=== PATIENT | female | born 1965 | race Caucasian/White ===

== ENCOUNTER → 2017-01-20 | Outpatient (CLI) | payer MEDICAID ==
--- NOTE | 2017-01-20 21:51 | US ---
EXAMINATION TYPE: US thyroid st tissue head/neck DATE OF EXAM: 01/20/2017 COMPARISON: NONE CLINICAL HISTORY: 51-year-old female E01.0 Thyromegaly; On thyroid medication Technique: Multiple sonographic images of the thyroid gland are obtained. FINDINGS: Right Lobe: 4.7 x 1.8 x 1.8 cm Overall Parenchyma: heterogenous Left Lobe: 4.2 x 2.3 x 1.4 cm Overall Parenchyma: heterogeneous Isthmus Thickness: 0.3 cm NODULES RIGHT: # of nodules measured on right: 2 largest of multiple 1. 1.0 X 0.9 x 0.8 cm solid isoechoic nodule at the lower lateral pole with well-defined margins; w ith a rim of peripheral calcification. This nodule is wider than tall and shows intranodular vascula rity. 2. 0.6 X 0.5 x 0.4 cm isoechoic solid nodule at the lower medial pole with well-defined margins; wit h rim of peripheral calcification. This nodule is wider than tall and shows no intranodular vascular ity. There are 2 additional solid hypoechoic circumscribed nodules present in the mid to lower pole measur ing up to 5 mm. LEFT: # of nodules measured on left: 2 of multiple 1. 0.8x 0.6x 0.6m hypoechoic solid nodule at the lower pole with well-defined margins. This nodule i s wide as is tall and shows no intranodular vascularity. 2. 0.5 x 0.6x 0.4cm isoechoic, solid nodule at the lower medial pole,with well-defined margins. This nodule is wider than tall and shows no intranodular vascularity. Additional scattered subcentimeter nodules are present measuring less than 5 mm. ISTHMUS: # of nodules measured in the isthmus: 0 Bilateral neck scanned, no evidence of lymphadenopathy. IMPRESSION: Heterogeneous gland with a number of thyroid nodules on both sides, largest measuring 1 cm on the rig ht and 8 mm on the left. Findings suggest multinodular goiter.
== END | disposition home or self-care (01) ==
LOC: RADUSWWP 15:30
PROVIDERS: ATTEND Internal Medicine
DX: E04.2 Nontoxic multinodular goiter (principal)
CPT/HCPCS: 76536

== ENCOUNTER → 2017-03-03 | Outpatient (CLI) | payer MEDICAID ==
--- NOTE | 2017-03-04 08:28 | MM ---
Reason for exam: screening (asymptomatic). Last mammogram was performed 1 year and 6 months ago. Physical Findings: A clinical breast exam by your physician is recommended on an annual basis and results should be correlated with mammographic findings. MG 3D Screening Mammo W/Cad Bilateral CC and MLO view(s) were taken. Prior study comparison: August 22, 2015, bilateral MG 3d screening mammo w/cad. August 12, 2014, bilateral MG screening mammo w CAD. The breast tissue is heterogeneously dense. This may lower the sensitivity of mammography. There is no discrete abnormality. No significant changes when compared with prior studies. ASSESSMENT: Negative, BI-RAD 1 RECOMMENDATION: Routine screening mammogram of both breasts in 1 year.
== END | disposition home or self-care (01) ==
LOC: RADMAMWWP 07:18
PROVIDERS: ATTEND Internal Medicine
DX: Z12.31 Encounter for screening mammogram for malignant neoplasm of breast (principal)
CPT/HCPCS: 77063; G0202

== ENCOUNTER → 2017-12-22 | Outpatient (CLI) | payer MEDICAID ==
--- NOTE | 2017-12-22 13:30 | US ---
EXAMINATION TYPE: US thyroid st tissue head/neck DATE OF EXAM: 12/22/2017 COMPARISON: 01/20/2017 CLINICAL HISTORY: E04.2 MULTINODULAR GOITER. GLAND SIZE: Right Lobe: 3.8 x 2.1 x 1.6 cm Overall Parenchyma: heterogenous Left Lobe: 3.7 x 1.6 x 1.2 cm Overall Parenchyma: heterogeneous Isthmus Thickness: 0.3 cm NODULES RIGHT: # of nodules measured on right: 3 largest of multiple 1. 0.9 X 1.0 x 0.8 cm isoechoic solid nodule at the lower lateral pole with well-defined margins; w ith hyperechoic periphery. This nodule is wider than tall and shows intranodular vascularity. Prior size: 1.0 x 0.9 x 0.8 cm 2. 0.5 X 0.4 x 0.4 cm isoechoic solid nodule at the medial pole with well-defined margins; with hype rechoic periphery. This nodule is wide as is tall and shows no intranodular vascularity. Prior size: 0.6 x 0.5 x 0.4 cm 3. 0.6 X 0.6 x 0.3 cm isoechoic solid nodule at the medial mid pole with well-defined margins. This nodule is wider than tall and shows no intranodular vascularity. LEFT: # of nodules measured on left: 4 largest of multiple 1. 0.8 X 0.9 x 0.6 cm hypoechoic solid nodule at the lower pole with well-defined margins. This no dule is wider than tall and shows no intranodular vascularity. Prior size: 0.8 x 0.6 x 0.6 cm 2. 0.5 X 0.7 x 0.5 cm isoechoic solid nodule at the lower pole with well-defined margins. This nodu le is wider than tall and shows no intranodular vascularity. Prior size: 0.5 x 0.6 x 0.4 cm 3. 0.97 X 0.8 x 0.4 cm isoechoic solid nodule at the mid pole with well-defined margins. This nodul e is wider than tall and shows no intranodular vascularity. Prior size: not measured/ not well seen 4. 0.7 X 0.7 x 0.5 cm hypoechoic solid nodule at the upper pole with well-defined margins. This nod ule is wider than tall and shows no intranodular vascularity. Prior size: not measured/ not well seen ISTHMUS: # of nodules measured in the isthmus: 1 1. 0.6 X 0.5 x 0.3 cm hypoechoic solid nodule at the lower right pole with well-defined margins. T his nodule is wider than tall and shows no intranodular vascularity. Prior size: not seen Bilateral neck scanned: no evidence of lymphadenopathy. IMPRESSION: Multiple bilateral subcentimeter thyroid nodules, most of which were seen on the prior exam and overa ll stable and few others not well visualized on the prior. Overall findings are compatible with a mul tinodular goiter. Continued surveillance could be performed.
== END | disposition home or self-care (01) ==
LOC: RADUSWWP 12:09
PROVIDERS: ATTEND Internal Medicine Endocrinology, Diabetes & Metabolism
DX: E04.2 Nontoxic multinodular goiter (principal)
CPT/HCPCS: 76536

== ENCOUNTER → 2018-01-21 | Outpatient (CLI) | payer MEDICAID ==
--- NOTE | 2018-01-21 19:41 | XR ---
EXAMINATION TYPE: XR lumbosacral spine min 4V DATE OF EXAM: 01/21/2018 COMPARISON: NONE HISTORY: Left hip pain and back pain TECHNIQUE: 5 views FINDINGS: Lumbar vertebra have normal spacing and alignment. Posterior elements are intact. Sacroilia c joints appear normal. IMPRESSION: Normal lumbar spine exam. There is probably a calculus in the lower pole left kidney.
== END | disposition home or self-care (01) ==
LOC: RADXRYALE 16:22
PROVIDERS: ATTEND Internal Medicine
DX: M54.5 Low back pain (principal)
CPT/HCPCS: 72110

== ENCOUNTER → 2018-03-27 | Outpatient (CLI) | payer MEDICAID ==
--- NOTE | 2018-04-03 09:10 | MM ---
Reason for exam: screening (asymptomatic). Last mammogram was performed 1 year and 1 month ago. MG 3D Screening Mammo W/Cad Bilateral CC and MLO view(s) were taken. Prior study comparison: March 03, 2017, bilateral MG 3d screening mammo w/cad. August 22, 2015, bilateral MG 3d screening mammo w/cad. The breast tissue is heterogeneously dense. This may lower the sensitivity of mammography. No suspicious abnormality. No significant changes when compared with prior studies. ASSESSMENT: Negative, BI-RAD 1 RECOMMENDATION: Routine screening mammogram of both breasts in 1 year.
== END | disposition home or self-care (01) ==
LOC: RADMAMWWP 11:01
PROVIDERS: ATTEND Internal Medicine
DX: Z12.31 Encounter for screening mammogram for malignant neoplasm of breast (principal)
CPT/HCPCS: 77063; 77067

== ENCOUNTER → 2018-07-22 | Outpatient (CLI) | payer MEDICAID ==
--- NOTE | 2018-07-22 13:26 | CT ---
EXAMINATION TYPE: CT sinus wo con DATE OF EXAM: 07/22/2018 COMPARISON: None HISTORY: Chronic sinusitis. CT DLP: 550.8 mGycm. Automated Exposure Control for Dose Reduction was Utilized. TECHNIQUE: CT scan of the sinuses is performed without contrast, axial images are obtained, coronal r eformatted images are also reviewed. FINDINGS: There is moderate amount of mucosal thickening involving ethmoid air cells bilaterally. Mil d to moderate changes involving the maxillary sinuses. There is a nasal septal deviation. Moderate si ze lesley bullosa on the left noted. Mild mucosal thickening involving the sphenoid sinus. The ostiom eatal complex is patent bilaterally on the coronal images. Visualized portion of mastoid air cells show no abnormal opacification. The globes are intact bilate rally. IMPRESSION: 1. There is sinusitis with most marked findings involving ethmoid air cells and
== END ==
LOC: RADCTMAIN 13:01
PROVIDERS: ATTEND Otolaryngology
DX: J32.9 Chronic sinusitis, unspecified (principal); J34.2 Deviated nasal septum
CPT/HCPCS: 70486

== ENCOUNTER 2018-09-03 09:23 | Day surgery (SDC) | payer MEDICAID ==
[2018-08-31 10:13] VITALS: BMI 27.5
[~2018-09-03 09:23] MED LIST: DEXAMETHASONE SOD PHOSPHATE 10 MG/ML 1 ML VIAL IV ONE; DEXAMETHASONE SOD PHOSPHATE 4 MG/ML 1 ML VIAL IV ONE; FAMOTIDINE 20 MG/2 ML VIAL IV ONE; HYDROmorphone 0.5 MG/0.5 ML SYRINGE IVP PRN; LACTATED RINGERS 1,000 ML IV SCH; LIDOCAINE 1% 20 ML VIAL (10MG/ML) FOR IV START INTRADERMA PRN; MIDAZOLAM 2 MG/2 ML VIAL IV PRN; ONDANSETRON 4 MG/2 ML VIAL IVP ONE; SCOPOLAMINE 1.5MG/72HR PATCH TRANSDERM ONE
[2018-09-03] MEDS: OXYMETAZOLINE 0.05% NASL SPRAY 1 SPRAY BOTTLE NASAL ONE ×5 (09:57→10:23)
[2018-09-03] MEDS ORDERED: LIDOCAINE 1% INJ 10MG/ML (20 ML MDV) ONE (11:03)
[2018-09-03] MEDS ORDERED: SUCCINYLCHOLINE CHLORIDE 100 MG/5 ML SYR IV ONE (11:03)
[2018-09-03] MEDS ORDERED: DEXAMETHASONE SOD PHOS (MDV) 100 MG/10 ML VIAL ONE (11:03)
[2018-09-03] MEDS ORDERED: PROPOFOL 10 MG/ML 20 ML VIAL IV ONE (11:03)
[2018-09-03] MEDS ORDERED: MIDAZOLAM 2 MG/2 ML VIAL ONE (11:03)
[2018-09-03] MEDS ORDERED: fentaNYL (PF) 50 MCG/ML 2 ML AMP ONE (11:03)
[2018-09-03] MEDS ORDERED: BUPIVACAIN-EPI 0.5%-1:200,000 30 ML VIAL SQ ONE ×2 (11:26)
[2018-09-03] MEDS ORDERED: EPINEPHrine 1 MG/ML (MDV) 30 ML VIAL IRRIGATION ONE (11:26)
[2018-09-03] MEDS ORDERED: LIDOCAINE 1%-EPI 1:100,000 20 ML VIAL SQ ONE ×2 (11:26)
[2018-09-03] MEDS ORDERED: FLUORESCEIN STRIPS 1 MG STRIP MISCELLANE ONE (11:27)
--- NOTE | 2018-09-03 12:14 | P.OP ---
Date of Procedure: 09/03/18 Preoperative Diagnosis: Chronic pansinusitis ALLERGIC fungal sinusitis Deviated nasal septum Left middle turbinate lesley bullosa Postoperative Diagnosis: Same Procedure(s) Performed: Septoplasty Bilateral functional endoscopic sinus surgery Resection of lateral wall of the left middle turbinate lesley bullosa Anesthesia: CLEO Surgeon: Jackie Tatum Estimated Blood Loss (ml): 5 Pathology: other (Sinonasal) Condition: stable Disposition: PACU Indications for Procedure: This patient presented to the office with long-standing chronic pansinusitis. The patient had infection of the frontal ethmoid maxillary and sphenoid sinuses. The CAT scan report did not mention the frontal sinuses but reviewing the films clearly demonstrates chronic fungal sinusitis in the frontal sinuses. Septal deviation is noted lesley bullosa on the left is also seen in the patient has failed medical therapy the patient has a chronic sinusitis and prior to 2002 were we had a CAT scan done showing chronic sinusitis with worsening. The ethmoid sinuses appear to have polyposis. Patient's requesting surgery. All risks, benefits, and alternative therapies were discussed. Consent was obtained and all questions were answered. Operative Findings: Widespread sinonasal disease with a chronic ALLERGIC fungal sinusitis polyposis is noted in the ethmoid sinuses deviated septum was seen in the large left middle turbinate lesley bullosa was identified and corrected. Description of Procedure: Prior to surgery the CAT scan was reviewed. There was some frontal sinus disease inferiorly along with jackie sinus disease of the maxillary ethmoid and sphenoid sinuses along with a deviated septum and the left middle turbinate lesley bullosa. Clear evidence of ALLERGIC fungal sinusitis was noted. This patient was taken to the operative room and placed in the supine position. A general inhalation anesthetic was administered to the patient by the department of anesthesia with a functioning IV line in place. The patient was monitored throughout the entire case by the department of anesthesia. The eyes were taped shut for protection. The patient was placed in a slight reverse Trendelenburg position. The patient had previously utilize Afrin nasal spray preoperatively. The nose was evaluated and the septum lateral nasal wall and inferior turbinates were injected with lidocaine 1% with epinephrine 1 100,000 bilaterally. Approximately 10 minutes were allowed wait for full vasoconstrictive effects to take place. At this point a caudal incision was made over the caudal portion of the left septum down to the mucoperichondrium. A mucoperichondrial flap was elevated on the left side and dissection was carried with use of tunnels posteriorly. We then made a crossover incision through the cartilage to the contralateral side and for the mucoperichondrial flap development was performed to the extent of visualization on the contralateral side. After the cartilage was freed with use of several crosshatching incisions and removal of some redundant strips of septal cartilage, the septum was straightened and placed back in the midline. The septum was sutured fixated to the ovarian groove. Excellent straightening occurred and the septum was visibly straight. Incision was closed with a 40 rapid Vicryl. We utilized a running nonlocking fashion for closure of the incision. A quilting stitch was used to reapproximate the septal flaps with use of a 40 rapid Vicryl. We then entered the nose with a 0 and 30 Bhagat alejandro endoscope. Previous to this we did inject the lateral nasal wall and middle turbinate and uncinate process with lidocaine 1% with epinephrine 1 100,000. Approximately 10 minutes were allowed wait for full vasoconstrictive effects to take place. Middle turbinate lesley bullosa. We resected the lateral portion of the lesley bullosa and brought that into a normal anatomic relationship. With use of a microdebrider and a pediatric backbiter, we took down the uncinate process bilaterally. We then opened the maxillary sinuses bilaterally. We utilized a microdebrider for this and entered the maxillary sinuses and removed diseased tissue. This was done bilaterally. After the maxillary sinuses were opened and the diseased tissue was removed we entered the ethmoid bulla and with use of a microdebrider and up-biting Francie, we followed the fovea frontalis through the basal lamella and into the posterior ethmoid air cells and did a total ethmoidectomy. We removed the anterior ethmoid air cells with use of a microdebrider and up-biting boss. After all the anterior ethmoid air cells were removed we did the same in the posterior ethmoid. A total ethmoidectomy was completed in that fashion with removal of all the anterior and posterior ethmoid air cells and diseased tissue. Once the ethmoids cells were all taken down we then entered the sphenoid sinus medially and inferiorly underneath the inferior attachment of the superior turbinate. The sphenoid sinus was opened entered and diseased tissue was removed bilaterally. This was done with a microdebrider and Blakesley. We then entered the frontal sinuses with a giraffe and up-biting Blakesley entered on the agar nasi cells. We open the frontal sinuses and removed sinus tissue that was diseased. We explored the frontal sinuses bilaterally. To summarize all sinuses were open all sinuses were explored and we remove diseased tissue from the sphenoid maxillary and frontal sinuses. Ethmoid sinuses were opened totally. Xerogel was inserted and minimal bleeding was encountered. We reinspected the skull base there is no signs of any orbital penetration or signs of any intracranial penetration. The sugical site was reinspected after the xerogel was placed and no bleeding was seen. Intranasal splints were inserted and fixated at the end of the case. We utilized Negro nasal splints. There will be removed and the patient returns to the office.
[2018-09-03] MEDS ORDERED: LABETALOL 5 MG/ML VIAL MDV IVP ONE ×2 (13:00→13:25)
[2018-09-03 13:04] VITALS: RESP 18; TEMP 97.1
[2018-09-03] MEDS ORDERED: hydrALAZINE HCL 20 MG/ML 1 ML VIAL IVP ONE (13:18)
[2018-09-03] MEDS ORDERED: LACTATED RINGERS 1,000 ML IV ONE (13:19)
[2018-09-03] MEDS ORDERED: ACETAMINOPHEN TAB 325 MG TAB PO ONE (14:01)
[2018-09-03 14:03] VITALS: BP 143/90; PULSE 89
== END 2018-09-03 14:19 | disposition home or self-care (01) ==
LOC: OR 09:23
PROVIDERS: ATTEND Otolaryngology
DX: J32.4 Chronic pansinusitis (principal); J30.89 Other allergic rhinitis; J34.2 Deviated nasal septum; J34.89 Other specified disorders of nose and nasal sinuses; B49 Unspecified mycosis; E07.9 Disorder of thyroid, unspecified; I10 Essential (primary) hypertension; Z79.2 Long term (current) use of antibiotics; Z79.1 Long term (current) use of non-steroidal anti-inflammatories (NSAID); Z79.890 Hormone replacement therapy; Z79.52 Long term (current) use of systemic steroids; Z79.899 Other long term (current) drug therapy; Z91.048 Other nonmedicinal substance allergy status; Z88.2 Allergy status to sulfonamides; Z98.890 Other specified postprocedural states; Z82.49 Family history of ischemic heart disease and other diseases of the circulatory system
CPT/HCPCS: 81025; 88305; 88300; 30520; 31240; 31267; 31259; 31253; 31299; J0171; J2250; J0360; J1100 ×2; J2405; J0690; J2001; J3010; J0330; J2704

== ENCOUNTER → 2019-01-26 | Outpatient (CLI) | payer MEDICAID ==
--- NOTE | 2019-01-26 15:07 | XR ---
EXAMINATION TYPE: XR Hip Complete LT DATE OF EXAM: 01/26/2019 CLINICAL HISTORY: Left hip pain for one month with no known injury TECHNIQUE: AP and frogleg views of the left hip are obtained. COMPARISON: None. FINDINGS: There is no acute fracture/dislocation evident in the left hip. The joint space in the le ft hip appears within normal limits. The overlying soft tissue appears unremarkable. IMPRESSION: There is no acute fracture or dislocation in the left hip. No significant arthropathy an d x-ray. If there is persistent pain left hip MRI could be considered.
--- NOTE | 2019-01-26 15:10 | XR ---
EXAMINATION TYPE: XR lumbosacral spine min 4V DATE OF EXAM: 01/26/2019 CLINICAL HISTORY: Left sacroiliac joint pain and back pain for one month with no known injury TECHNIQUE: Frontal, lateral, and oblique images of the lumbar spine are obtained. COMPARISON: 01/31/2019 FINDINGS: There are 5 lumbar type vertebral bodies identified. The lumbar spine shows satisfactory alignment without evidence of acute fracture or dislocation. Vertebral body heights and disk space he ights are within normal limits. Mild facet arthropathy is seen at L4-L5 and L5-S1. The oblique image s appear within normal limits. The overlying soft tissue appears unremarkable. IMPRESSION: No acute fracture or dislocation is seen in the lumbar spine. Mild facet arthropathy of the lower lumbar spine.
== END | disposition home or self-care (01) ==
LOC: RADXRYALE 13:10
PROVIDERS: ATTEND Internal Medicine
DX: M46.96 Unspecified inflammatory spondylopathy, lumbar region (principal); M54.32 Sciatica, left side
CPT/HCPCS: 72110; 73502

== ENCOUNTER → 2019-02-08 | Outpatient (CLI) | payer MEDICAID ==
--- NOTE | 2019-02-08 09:11 | MR ---
EXAMINATION TYPE: MR lumbar spine wo con DATE OF EXAM: 02/08/2019 COMPARISON: Lumbosacral x-ray January 26, 2019. HISTORY: Sciatica of left side per order, pain from herniated disc for 6 to 7 weeks into left buttock s and thigh per patient TECHNIQUE: Multiplanar, multisequence imaging of the lumbar spine is performed without IV contrast. FINDINGS: Sagittal images of the lumbar spine show vertebral body heights and alignment to remain sat isfactory. There is some multilevel disc desiccation with mild disc space narrowing L3-L4 level. The conus medullaris is normal in position and signal ending mid L1 level. The bone marrow signal inten sity is overall slightly heterogeneous. Axial images show mild facet arthropathy L4-L5 and L5-S1 levels. There is no spinal canal stenosis, neural foraminal narrowing, or evidence of nerve root compromise. No large disc herniations are prese nt. IMPRESSION: Mild degenerative changes as detailed above. No suspicious findings seen to account for p cristina's left-sided radiculopathy type symptoms.
== END | disposition home or self-care (01) ==
LOC: RADMRIMAIN 07:28
PROVIDERS: ATTEND Internal Medicine
DX: M99.73 Connective tissue and disc stenosis of intervertebral foramina of lumbar region (principal); M46.97 Unspecified inflammatory spondylopathy, lumbosacral region; M46.96 Unspecified inflammatory spondylopathy, lumbar region
CPT/HCPCS: 72148

== ENCOUNTER → 2019-03-30 | Outpatient (CLI) | payer MEDICAID ==
--- NOTE | 2019-03-31 12:10 | MM ---
Reason for exam: screening (asymptomatic). Last mammogram was performed 1 year ago. History: Patient is postmenopausal. Physical Findings: A clinical breast exam by your physician is recommended on an annual basis and results should be correlated with mammographic findings. MG 3D Screening Mammo W/Cad Bilateral CC and MLO view(s) were taken. Prior study comparison: March 27, 2018, bilateral MG 3d screening mammo w/cad. March 03, 2017, bilateral MG 3d screening mammo w/cad. The breast tissue is heterogeneously dense. This may lower the sensitivity of mammography. There is no discrete abnormality. ASSESSMENT: Negative, BI-RAD 1 RECOMMENDATION: Routine screening mammogram of both breasts in 1 year.
== END | disposition home or self-care (01) ==
LOC: RADMAMWWP 10:20
PROVIDERS: ATTEND Internal Medicine
DX: Z12.31 Encounter for screening mammogram for malignant neoplasm of breast (principal)
CPT/HCPCS: 77063; 77067

== ENCOUNTER → 2020-05-18 | Outpatient (CLI) | payer MEDICAID ==
--- NOTE | 2020-05-18 14:22 | MM ---
Reason for exam: screening (asymptomatic). Last mammogram was performed 1 year and 2 months ago. History: Patient is postmenopausal. Physical Findings: A clinical breast exam by your physician is recommended on an annual basis and results should be correlated with mammographic findings. MG 3D Screening Mammo W/Cad Bilateral CC and MLO view(s) were taken. Prior study comparison: March 30, 2019, bilateral MG 3d screening mammo w/cad. March 27, 2018, bilateral MG 3d screening mammo w/cad. There are scattered fibroglandular densities. There is no discrete abnormality. ASSESSMENT: Negative, BI-RAD 1 RECOMMENDATION: Routine screening mammogram of both breasts in 1 year. Manage on a clinical basis with regard to left itchiness x 2 months.
== END ==
LOC: RADMAMWWP 10:51
PROVIDERS: ATTEND Obstetrics & Gynecology
DX: Z12.31 Encounter for screening mammogram for malignant neoplasm of breast (principal); Z78.0 Asymptomatic menopausal state
CPT/HCPCS: 77063; 77067

== ENCOUNTER → 2020-08-23 | Outpatient (CLI) | payer MEDICAID ==
--- NOTE | 2020-08-23 14:36 | XR ---
EXAMINATION TYPE: XR pelvis AP view DATE OF EXAM: 08/23/2020 COMPARISON: None HISTORY: Low back pain TECHNIQUE: AP pelvis FINDINGS: Sacroiliac joints are patent. Symphysis pubis normal. Femoral heads articular with the acet abulum. No acute fractures are evident. Normal bowel gas is present. IMPRESSION: 1. Normal AP pelvis
== END | disposition home or self-care (01) ==
LOC: RADXRYALE 14:10
PROVIDERS: ATTEND Internal Medicine Rheumatology
DX: M54.5 Low back pain (principal)
CPT/HCPCS: 72170

== ENCOUNTER → 2021-01-30 | Outpatient (CLI) | payer MEDICAID, OTHER | END | disposition home or self-care (01) | LOC: LABWHC1 08:52 | PROVIDERS: ATTEND Emergency Medicine | DX: Z03.818 Encounter for observation for suspected exposure to other biological agents ruled out (principal); Z20.822 Contact with and (suspected) exposure to COVID-19 | CPT/HCPCS: 87635 ==

== ENCOUNTER → 2021-05-24 | Outpatient (CLI) | payer MEDICAID ==
--- NOTE | 2021-05-25 11:53 | MM ---
Reason for exam: screening (asymptomatic). Last mammogram was performed 1 year ago. History: Patient is postmenopausal. Physical Findings: A clinical breast exam by your physician is recommended on an annual basis and results should be correlated with mammographic findings. MG 3D Screening Mammo W/Cad Bilateral CC and MLO view(s) were taken. Prior study comparison: May 18, 2020, bilateral MG 3d screening mammo w/cad. March 30, 2019, bilateral MG 3d screening mammo w/cad. The breast tissue is heterogeneously dense. This may lower the sensitivity of mammography. There is no discrete abnormality. No significant changes when compared with prior studies. ASSESSMENT: Negative, BI-RAD 1 RECOMMENDATION: Routine screening mammogram of both breasts in 1 year.
== END | disposition home or self-care (01) ==
LOC: RADMAMWWP 15:12
PROVIDERS: ATTEND Obstetrics & Gynecology
DX: Z12.31 Encounter for screening mammogram for malignant neoplasm of breast (principal)
CPT/HCPCS: 77063; 77067

== ENCOUNTER → 2022-05-30 | Outpatient (CLI) | payer MEDICAID ==
--- NOTE | 2022-05-31 08:30 | MM ---
Reason for Exam: Screening (asymptomatic). Last screening mammogram was performed 12 month(s) ago. Patient History: Menarche at age 13. First Full-Term at age 26. Postmenopausal. Patient has history of breast feeding. Risk Values: Anna 5 year model risk: 1.2%. NCI Lifetime model risk: 8.1%. Prior Study Comparison: 08/22/2015 Bilateral Screening Mammogram, [facility]. 03/03/2017 Bilateral Screening Mammogram, [facility]. 03/27/2018 Bilateral Screening Mammogram, [facility]. 03/30/2019 Bilateral Screening Mammogram, [facility]. 05/18/2020 Bilateral Screening Mammogram, [facility]. 05/24/2021 Bilateral Screening Mammogram, [facility]. Tissue Density: There are scattered fibroglandular densities. Findings: Analyzed By CAD. There is no suspicious group of microcalcifications or new suspicious mass in either breast. Overall Assessment: Negative, BI-RAD 1 Management: Screening Mammogram of both breasts in 1 year. A clinical breast exam by your physician is recommended on an annual basis and results should be correlated with mammographic findings. Electronically signed and approved by: Jake Raygoza D.O.
== END | disposition home or self-care (01) ==
LOC: RADMAMWWP 12:55
PROVIDERS: ATTEND Obstetrics & Gynecology
DX: Z12.31 Encounter for screening mammogram for malignant neoplasm of breast (principal); Z78.0 Asymptomatic menopausal state
CPT/HCPCS: 77063; 77067

== ENCOUNTER → 2023-06-09 | Outpatient (CLI) | payer MEDICAID ==
--- NOTE | 2023-06-13 09:42 | MM ---
Reason for Exam: Screening (asymptomatic). Last screening mammogram was performed 12 month(s) ago. Patient History: Menarche at age 13. First Full-Term at age 26. Postmenopausal. Patient has history of breast feeding. Risk Values: Anna 5 year model risk: 1.2%. NCI Lifetime model risk: 7.9%. Prior Study Comparison: 05/18/2020 Bilateral Screening Mammogram, [facility]. 05/24/2021 Bilateral Screening Mammogram, [facility]. 05/30/2022 Bilateral MG 3D screening mammo w/cad, [facility]. Tissue Density: The breasts are heterogeneously dense, which may obscure small masses. Findings: Analyzed By CAD. There is no suspicious group of microcalcifications or new suspicious mass in either breast. Benign calcifications. There is a new 4 mm nodule in the upper outer quadrant of the left breast. Suspect this represents a benign lymph node. It is incompletely evaluated and not present on prior exam. Overall Assessment: Incomplete: need additional imaging evaluation, BI-RAD 0 Management: Diagnostic Mammogram of the left breast. . Patient should continue monthly self-breast exams. A clinical breast exam by your physician is recommended on an annual basis. This exam should not preclude additional follow-up of suspicious palpable abnormalities. Note on Anan scores and lifetime risk: 1. A Anna score greater than 3% is considered moderate risk. If this is the case, consider specialist referral to assess eligibility for a risk reducing agent. 2. If overall lifetime risk for the development of breast cancer is 20% or higher, the patient may qualify for future screening with alternating mammogram and breast MRI. Electronically signed and approved by: Enzo Do M.D. Radiologis
== END | disposition home or self-care (01) ==
LOC: RADMAMWWP 14:36
PROVIDERS: ATTEND Internal Medicine
DX: Z12.31 Encounter for screening mammogram for malignant neoplasm of breast (principal); Z78.0 Asymptomatic menopausal state
CPT/HCPCS: 77063; 77067

== ENCOUNTER → 2023-06-19 | Outpatient (CLI) | payer MEDICAID ==
--- NOTE | 2023-06-19 08:30 | MM ---
Reason for Exam: Additional evaluation requested from abnormal screening. Last screening mammogram was performed less than 1 month ago. Patient History: Menarche at age 13. First Full-Term at age 26. Postmenopausal. Patient has history of breast feeding. Risk Values: Anna 5 year model risk: 1.2%. NCI Lifetime model risk: 7.9%. Prior Study Comparison: 03/03/2017 Bilateral Screening Mammogram, [facility]. 03/27/2018 Bilateral Screening Mammogram, [facility]. 03/30/2019 Bilateral Screening Mammogram, [facility]. 05/18/2020 Bilateral Screening Mammogram, [facility]. 05/24/2021 Bilateral Screening Mammogram, [facility]. 05/30/2022 Bilateral MG 3D screening mammo w/cad, [facility]. 06/09/2023 Bilateral MG 3D screening mammo w/cad, [facility]. Tissue Density: Left: The breasts are heterogeneously dense, which may obscure small masses. Findings: Analyzed By CAD. There is a persistent 5 mm nodule noted upper outer quadrant left breast 8 cm from the nipple. Ultrasound recommended. Overall Assessment: Incomplete: need additional imaging evaluation, BI-RAD 0 Management: Diagnostic Breast Ultrasound of the left breast. . Results were given to the patient verbally at the time of exam. Patient should continue monthly self-breast exams. A clinical breast exam by your physician is recommended on an annual basis. This exam should not preclude additional follow-up of suspicious palpable abnormalities. Note on Anna scores and lifetime risk: 1. A Anna score greater than 3% is considered moderate risk. If this is the case, consider specialist referral to assess eligibility for a risk reducing agent. 2. If overall lifetime risk for the development of breast cancer is 20% or higher, the patient may qualify for future screening with alternating mammogram and breast MRI. Electronically signed and approved by: Clark Palmer M.D. Radiologis
--- NOTE | 2023-06-19 09:07 | USB ---
Reason for Exam: Additional evaluation requested from abnormal screening. Patient History: Menarche at age 13. First Full-Term at age 26. Postmenopausal. Patient has history of breast feeding. Risk Values: Anna 5 year model risk: 1.2%. NCI Lifetime model risk: 7.9%. Technique: Method: Targeted. Prior Study Comparison: 05/24/2021 Bilateral Screening Mammogram, [facility]. 05/30/2022 Bilateral MG 3D screening mammo w/cad, [facility]. 06/09/2023 Bilateral MG 3D screening mammo w/cad, [facility]. Findings: The upper outer quadrant of the left breast, the axilla of the left breast and the retroareolar of the left breast were scanned. Small cystic area at the left 3:00 position 8 cm from the nipple measures approximately 0.35 cm and is too small to appropriately characterize although likely reflects a small cyst. 6 month follow-up mammography and ultrasound is recommended. Overall Assessment: Probably benign, BI-RAD 3 Management: Diagnostic Mammogram of the left breast in 6 months. A clinical breast exam by your physician is recommended on an annual basis and results should be correlated with mammographic findings. This exam should not preclude additional follow-up of suspicious palpable abnormalities. Results were given to the patient verbally at the time of exam. Electronically signed and approved by: Clark Palmer M.D. Radiologis
== END | disposition home or self-care (01) ==
LOC: RADMAMWWP 07:43
PROVIDERS: ATTEND Internal Medicine
DX: N60.02 Solitary cyst of left breast (principal); R92.332 Mammographic heterogeneous density, left breast; Z78.0 Asymptomatic menopausal state
CPT/HCPCS: 77061; 77065

== ENCOUNTER → 2024-01-27 | Outpatient (CLI) | payer MEDICAID ==
[2024-01-27 15:00] VITALS: BP 120/63; PULSE 88; RESP 17; TEMP 97.8
--- NOTE | 2024-01-27 15:33 | P.HPOB ---
History of Present Illness H&P Date: 01/27/24 Chief Complaint: The patient is here for her routine gynecologic exam. This is a 58-year-old G3, P3 with an LMP of 2014. The patient is here to establish with this office. Her last gynecologic exam was about 1-1/2 years ago. She previously saw Dr. Jones for her gynecologic care. She is currently without complaints and denies any postmenopausal bleeding. Her last screening mammogram on 06/09/2023 did require a left breast workup. The workup was probably benign. A 6-month diagnostic left mammogram was recommended. Review of Systems The patient has gained about 10 pounds over the last year. She denies respiratory, cardiac, or G.I. problems. Past Medical History Past Medical History: Hypertension, Thyroid Disorder Additional Past Medical History / Comment(s): Hypothyroidism. Seasonal allergies. 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 History of Any Multi-Drug Resistant Organisms: None Reported Past Surgical History: Tonsillectomy, Uterine Ablation Additional Past Surgical History / Comment(s): Endometrial ablation in 2012. Sinus surgery. Past Anesthesia/Blood Transfusion Reactions: Motion Sickness, Postoperative Nausea & Vomiting (PONV) Past Psychological History: No Psychological Hx Reported Smoking Status: Never smoker Past Alcohol Use History: Occasional (2-3 drinks per week.) Past Drug Use History: None Reported Additional History: She has been since 1986. She works at [employer] in [place]. - Past Family History Father Family Medical History: Cancer, Hypertension, Myocardial Infarction ([place]) Additional Family Medical History / Comment(s): Throat cancer. . Mother Family Medical History: Hypertension, Thyroid Disorder Medications and Allergies Home Medications Medication Instructions Recorded Confirmed Type Cetirizine HCl [Zyrtec] 10 mg PO HS 08/31/18 01/27/24 History Levothyroxine Sodium [Synthroid] 75 mcg PO DAILY 08/31/18 01/27/24 History Losartan/Hydrochlorothiazide 1 each PO DAILY 08/31/18 01/27/24 History [Losartan-Hctz 50-12.5 mg Tab] atenoloL [Tenormin] 25 mg PO DAILY 08/31/18 01/27/24 History Multivitamin [Multivitamins Adult 1 tab PO DAILY 01/27/24 01/27/24 History Gummies] Allergies Allergy/AdvReac Type Severity Reaction Status Date / Time Sulfa (Sulfonamide Allergy Rash/Hives Verified 01/27/24 14:45 Antibiotics) Exam Vital Signs Temp Pulse Resp BP Pulse Ox 01/27/24 14:47 97.8 F 88 17 120/63 98 Intake and Output 01/27/24 01/27/24 01/27/24 06:59 14:59 22:59 Other: Weight 64.864 kg Height 5 feet 0 inches, weight 143 pounds, BMI 27.9. This is a well-developed well-nourished white female who is alert and oriented times 3 in no acute distress. HEENT: Within normal limits. NECK: Supple without mass or thyromegaly. CHEST AND LUNGS: Clear to auscultation. HEART: Regular rate and rhythm. BREASTS: Are without mass or discharge. AXILLARY EXAM: Negative for adenopathy. BACK: Negative for CVA tenderness. ABDOMEN: Soft, nontender, without palpable masses. PELVIC EXAM: Normal external genitalia with minimal atrophy. Cervix and vagina appear normal with minimal atrophy. There is no unusual discharge. There is no evidence of prolapse. The uterus is midposition, nongravid size and nontender. There are no palpable adnexal masses or tenderness. RECTAL EXAM: Rectovaginal exam is negative for mass or tenderness and is negative for occult blood. EXTREMITIES: Nontender. IMPRESSION: 1. 58-year-old menopausal female with normal gynecologic exam. PLAN: 1. Pap smear cotest was performed. 2. Self breast awareness was discussed with the patient. We have also discussed symptoms associated with inflammatory breast cancer. 3. Screening mammogram was done on 06/09/2023 and did require a left breast workup which was probably benign. A 6-month diagnostic left mammogram was recommended. She states she is scheduled for this on 02/02/2024. The order slip was given to the patient for this. 4. Osteoporosis prevention was discussed. I have stressed the importance of adequate calcium, vitamin D and regular exercise. Recommended amounts of beatris cium and vitamin D were also discussed. 5. Weight control was discussed. I have stressed the importance of good nutrition, regular meals, adequate fiber, and regular exercise. 6. She was advised to return in one year for her annual well woman exam.
== END ==
LOC: WWCWWP 14:27
PROVIDERS: ATTEND Obstetrics & Gynecology
DX: Z01.419 Encounter for gynecological examination (general) (routine) without abnormal findings (principal); Z78.0 Asymptomatic menopausal state; Z88.2 Allergy status to sulfonamides

== ENCOUNTER → 2024-02-02 | Outpatient (CLI) | payer MEDICAID ==
--- NOTE | 2024-02-03 11:01 | MM ---
Reason for Exam: Follow-up at short interval from prior study. Last screening mammogram was performed 8 month(s) ago. Patient History: Menarche at age 13. First Full-Term at age 26. Postmenopausal. Patient has history of breast feeding. Risk Values: Anna 5 year model risk: 1.2%. NCI Lifetime model risk: 7.9%. Prior Study Comparison: 05/30/2022 Bilateral MG 3D screening mammo w/cad, [facility]. 06/09/2023 Bilateral MG 3D screening mammo w/cad, [facility]. 06/19/2023 Left MG 3D work up w/cad LT, [facility]. Tissue Density: Left: The breasts are heterogeneously dense, which may obscure small masses. Findings: Analyzed By CAD. Nodular density left breast does not persist. No new nodules seen. No distortion or suspicious microcalcifications. Overall Assessment: Negative, BI-RAD 1 Management: Screening Mammogram of both breasts in 6 months. . Results were given to the patient verbally at the time of exam. Patient should continue monthly self-breast exams. A clinical breast exam by your physician is recommended on an annual basis. This exam should not preclude additional follow-up of suspicious palpable abnormalities. Note on Anna scores and lifetime risk: 1. A Anna score greater than 3% is considered moderate risk. If this is the case, consider specialist referral to assess eligibility for a risk reducing agent. 2. If overall lifetime risk for the development of breast cancer is 20% or higher, the patient may qualify for future screening with alternating mammogram and breast MRI. [facility], , 02/03/2024 10:58 AM. Electronically signed and approved by: Clark Palmer M.D. Radiologis
== END | disposition home or self-care (01) ==
LOC: RADMAMWWP 14:36
PROVIDERS: ATTEND Internal Medicine
DX: R92.8 Other abnormal and inconclusive findings on diagnostic imaging of breast (principal); R92.333 Mammographic heterogeneous density, bilateral breasts; Z78.0 Asymptomatic menopausal state
CPT/HCPCS: 77061; 77065

== ENCOUNTER → 2024-09-21 | Outpatient (CLI) | payer MEDICAID ==
--- NOTE | 2024-09-21 09:58 | MM ---
Reason for Exam: Screening (asymptomatic). Last mammogram was performed 1 year(s) and 4 month(s) ago. Patient History: Menarche at age 13. First Full-Term at age 26. Postmenopausal. Patient has history of breast feeding. Risk Values: Anna 5 year model risk: 1.3%. NCI Lifetime model risk: 7.7%. Prior Study Comparison: 06/09/2023 Bilateral MG 3D screening mammo w/cad, [facility]. 06/19/2023 Left MG 3D work up w/cad LT, [facility]. 02/02/2024 Left MG 3D diag mammo w/cad LT, [facility]. Tissue Density: There are scattered areas of fibroglandular density. Findings: Analyzed By CAD. Stable focal asymmetric tissue in the posterior slightly outer upper aspect left breast. There is no suspicious group of microcalcifications or new suspicious mass in either breast. Overall Assessment: Negative, BI-RAD 1 Management: Screening Mammogram of both breasts in 1 year. . Patient should continue monthly self-breast exams. A clinical breast exam by your physician is recommended on an annual basis. This exam should not preclude additional follow-up of suspicious palpable abnormalities. Note on Anna scores and lifetime risk: 1. A Anna score greater than 3% is considered moderate risk. If this is the case, consider specialist referral to assess eligibility for a risk reducing agent. 2. If overall lifetime risk for the development of breast cancer is 20% or higher, the patient may qualify for future screening with alternating mammogram and breast MRI. [facility], , 09/21/2024 9:56 AM. Electronically signed and approved by: Gilberto Corona M.D.
== END | disposition home or self-care (01) ==
LOC: RADMAMWWP 08:29
PROVIDERS: ATTEND Obstetrics & Gynecology
DX: Z12.31 Encounter for screening mammogram for malignant neoplasm of breast (principal); R92.323 Mammographic fibroglandular density, bilateral breasts; Z78.0 Asymptomatic menopausal state
CPT/HCPCS: 77063; 77067